=== PATIENT | male | born 1940 | race Caucasian/White ===

== ENCOUNTER 2016-07-10 07:29 | Emergency (ER) | payer BC ==
[2016-07-10 07:46] VITALS: BP 153/95
--- NOTE | 2016-07-10 08:22 | UC ---
Skin Complaint HPI - HPI Summary HPI Summary: Had tick on L upper thigh about 10 days ago. Removed it but the tick broke apart. Saw his PCP, who "picked out the head," and did not take lyme prophylaxis. Now for the last day or two pt has noticed redness, swelling, and pain at the site of the tick bite. Denies fever or ARRIETA. - History of Current Complaint Chief Complaint: UCSkin Time Seen by Provider: 07/10/16 08:04 Stated Complaint: RASH Hx Obtained From: Patient Onset/Duration: Gradual Onset, Lasting Days Skin Exposure Onset/Duration: Days Ago Timing: Constant Onset Severity: Mild Current Severity: Mild Location: Discrete Character: Pain, Redness, Raised Aggravating: Touch Alleviating: Nothing Associated Signs & Symptoms: Positive: Rash Related History: Insect Bite/Sting - Allergy/Home Medications Allergies/Adverse Reactions: Allergies Allergy/AdvReac Type Severity Reaction Status Date / Time Penicillins Allergy Intermediate Hives Verified 07/10/16 07:45 Review of Systems Constitutional: Negative Skin: Rash Eyes: Negative ENT: Negative Respiratory: Negative Cardiovascular: Negative Gastrointestinal: Negative Genitourinary: Negative Motor: Negative Neurovascular: Negative Musculoskeletal: Negative Neurological: Negative Psychological: Negative All Other Systems Reviewed And Are Negative: Yes PMH/Surg Hx/FS Hx/Imm Hx Endocrine History Of: Denies: Diabetes, Thyroid Disease Cardiovascular History Of: Reports: Cardiac Disorders - AAA 4.5cm, Hypertension Respiratory History Of: Denies: COPD, Asthma GI/ History Of: Denies: Ulcer - Surgical History Surgical History: Yes Surgery Procedure, Year, and Place: AAA. henia - Family History Known Family History: Positive: Hypertension - Social History Occupation: Retired Alcohol Use: None Substance Use Type: None Smoking Status (MU): Never Smoked Tobacco Physical Exam Triage Information Reviewed: Yes Appearance: Well-Appearing, No Pain Distress, Well-Nourished Vital Signs: Initial Vital Signs Temp 97.6 F 07/10/16 07:41 Pulse 68 07/10/16 07:41 Resp 20 07/10/16 07:41 BP 153/95 07/10/16 07:41 Pulse Ox 98 07/10/16 07:41 Vital Signs Reviewed: Yes Eye Exam: Normal Eyes: Positive: Conjunctiva Clear ENT: Positive: Pharynx normal. Negative: Nasal congestion, Nasal drainage, Tonsillar swelling, Tonsillar exudate Dental Exam: Normal Neck exam: Normal Neck: Positive: Supple, Nontender, No Lymphadenopathy Respiratory Exam: Normal Respiratory: Positive: Chest non-tender, Lungs clear, Normal breath sounds, No respiratory distress, No accessory muscle use Cardiovascular Exam: Normal Cardiovascular: Positive: RRR, No Murmur Musculoskeletal Exam: Normal Neurological Exam: Normal Neurological: Positive: Alert Psychological Exam: Normal Skin Exam: Other - Approx 4cm diameter round indurated, tender, and red area around tick bite on L upper thigh, surrounded by 16cm clinical services specialist pink ovoid skin. No streaking or drainage. Course/Dx - Diagnoses Provider Diagnoses: lyme infection. vs. cellulitis Discharge - Discharge Plan Condition: Stable Disposition: HOME Prescriptions: DOXYcycline CAP(*) [DOXYcycline 100MG CAP(*)] 100 mg PO BID #28 cap Patient Education Materials: Cellulitis (ED), Lyme Disease (ED) Referrals: Daylin Carty MD [Primary Care Provider] - Additional Instructions: As we discussed, the placement and timing of your red spot are suspicious for Lyme infection, while the swelling and pain are more suggestive of a more common skin infection such as staph. The doxycycline should help in either case. Please follow up with your primary care provider if you have any further symptoms or concerns.
== END 2016-07-10 08:25 | disposition home or self-care (01) ==
LOC: UCEAST 07:29
DX: R21 Rash and other nonspecific skin eruption (principal); Z88.0 Allergy status to penicillin; I10 Essential (primary) hypertension
CPT/HCPCS: 99212; G0463

== ENCOUNTER 2018-05-23 09:19 | Emergency (ER) | payer BC ==
--- NOTE | 2018-05-23 09:35 | ED ---
HPI Chest Pain - HPI Summary HPI Summary: This patient is a 77 year old F brought in by ambulance to ED with a chief complaint of feeling a pop in his chest a bit before 0600 and chest discomfort since then. The patient has a 4.5cm aneurysm and gets it checked twice a year (last checked in November 2017). The patient rates the pain 2/10 in severity currently and 4/10 during onset. Symptoms aggravated by nothing. Symptoms alleviated by nothing. Patient reports some back discomfort and weakness. Patient denies cough, dizziness/light-headedness, melena, and N/V. PMHx of AAA and HTN (takes Losartan BID, amlodipine, and hydrodiuril). - History of Current Complaint Chief Complaint: EDChestPainROMI Time Seen by Provider: 05/23/18 09:20 Hx Obtained From: Patient Onset/Duration: Started Hours Ago - since 0600, Still Present Timing: Constant Initial Severity: Moderate - 4/10 Current Severity: Mild - 2/10 Pain Intensity: 2 Pain Scale Used: 0-10 Numeric Chest Pain Radiates: Yes Chest Pain Radiates To:: Back - some back discomfort Aggravating Factor(s): Nothing Alleviating Factor(s): Nothing Associated Signs and Symptoms: Positive: Chest Pain, Weakness, Other: - felt a "pop" in his chest. Negative: Dizziness, Nausea, Cough, Vomiting - Allergy/Home Medications Allergies/Adverse Reactions: Allergies Allergy/AdvReac Type Severity Reaction Status Date / Time Penicillins Allergy Mild Hives Verified 05/23/18 10:01 soy AdvReac Mild Fatigue Verified 05/23/18 10:01 PMH/Surg Hx/FS Hx/Imm Hx Endocrine/Hematology History: Denies: Hx Diabetes, Hx Thyroid Disease Cardiovascular History: Reports: Hx Hypertension Respiratory History: Denies: Hx Asthma, Hx Chronic Obstructive Pulmonary Disease (COPD) GI History: Denies: Hx Ulcer History: Denies: Hx Renal Disease - Surgical History Surgery Procedure, Year, and Place: AAA. hernia Infectious Disease History: No Infectious Disease History: Denies: Hx Clostridium Difficile, Hx Hepatitis, Hx Human Immunodeficiency Virus (HIV), Hx of Known/Suspected MRSA, Hx Shingles, Hx Tuberculosis, Traveled Outside the [place] in Last 30 Days - Family History Known Family History: Positive: Hypertension - Social History Alcohol Use: None Substance Use Type: Reports: None Smoking Status (MU): Never Smoked Tobacco Review of Systems Negative: Fever, Chills Negative: Erythema Negative: Sore Throat Positive: Chest Pain - feeling a pop in his chest Negative: Shortness Of Breath, Cough Positive: Other - denies melena. Negative: Abdominal Pain, Vomiting, Nausea Negative: dysuria, hematuria Positive: Other - some back discomfort. Negative: Myalgia, Edema Negative: Rash Neurological: Other - denies dizziness/light-headedness Positive: Weakness All Other Systems Reviewed And Are Negative: Yes Physical Exam - Summary Physical Exam Summary: Constitutional: Well-developed, Well-nourished, Alert. (-) Distressed Skin: Warm, Dry HENT: Normocephalic; Atraumatic Eyes: Conjunctiva normal Neck: Musculoskeletal ROM normal neck. (-) JVD, (-) Stridor, (-) Tracheal deviation Cardio: Rhythm regular, bradycardic; Intact distal pulses; The pedal pulses are 2+ and symmetric. Radial pulses are 2+ and symmetric. (-) Murmur Pulmonary/Chest wall: Effort normal. (-) Respiratory distress, (-) Wheezes, (-) Rales Abd: Soft, (-) epigastric tenderness, (-) Distension, (-) Guarding, (-) Rebound Musculoskeletal: (-) Edema Lymph: (-) Cervical adenopathy Neuro: Alert, Oriented x3 Psych: Mood and affect Normal Triage Information Reviewed: Yes Vital Signs On Initial Exam: Initial Vitals Temp Pulse Resp BP Pulse Ox 97.2 F 52 16 75/57 100 05/23/18 09:22 05/23/18 09:22 05/23/18 09:22 05/23/18 09:22 05/23/18 09:22 Vital Signs Reviewed: Yes Diagnostics - Vital Signs Vital Signs Temp Pulse Resp BP Pulse Ox 05/23/18 09:22 97.2 F 52 16 75/57 100 - Laboratory Result Diagrams: 05/23/18 09:35 05/23/18 09:35 Lab Statement: Any lab studies that have been ordered have been reviewed, and results considered in the medical decision making process. - Radiology CXR Radiology Interpretation Completed By: Radiologist Summary of Radiographic Findings: DILATATION OF THE ASCENDING AORTA CORRESPONDING TO DISSECTION NOTED ON CT. Dr. Harper has reviewed this radiology report. 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 This is consistent with a type a dissection. Atherosclerosis is noted throughout the descending aorta and abdominal aorta. There is an enhancing right renal mass which has been increasing in size since 2012. Findings discussed with Dr. Harper at 10: [address] Harper has reviewed this radiology report. - EKG 0923 Cardiac Rate: Bradycardia - 52 BPM Summary of EKG Findings: 1st degree heart block Re-Evaluation - Re-Evaluation First Eval Re-Evaluation Time: 10:01 Comment: Discussed with patient results and plan for transfer to [facility]. Patient understands and agrees with this plan. Second Eval Re-Evaluation Time: 10:09 Change: Improved Comment: BP is back up to 100. Chest Pain Course/Dx - Course Assessment/Plan: This patient is a 77 year old F brought in by ambulance to ED with a chief complaint of feeling a pop in his chest a bit before 0600. This patient will be transferred to [facility] with dx of ascending thoracic aortic dissection. [employer] helicopter at 0933. Spoke with patient's at [phone] about the patient's potentially grave diagnosis. She is currently in [facility]. and I will discuss further with her after images are done. In the ED course, the patient was given fluids. EKG reveals sinus bradycardia at 52 BPM with a 1st degree heart block. Spoke with the transfer center at [facility] at 0941 who says they will call back with a physician. Spoke with Dr. Lynn at [facility] at 0945 who accepts the patient for transfer, pending images. Spoke with radiology at 1000 about the CTA results. 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 This is consistent with a type a dissection. Atherosclerosis is noted throughout the descending aorta and abdominal aorta. There is an enhancing right renal mass which has been increasing in size since 2012. CXR reveals DILATATION OF THE ASCENDING AORTA CORRESPONDING TO DISSECTION NOTED ON CT. Spoke with Dr. Lynn at [facility] at 1003 about the patient's radiology results and Dr. Lynn accepts transfer of the patient to the ED in [facility]. The patient will be transferred to [facility]. Patient understands and agrees with this plan. At the time of transfer, the patient was again hypotensive but then his BP went back up so we will send him on the helicopter with Levophed but will not start him on it prior to transfer. The flight crew will continue the blood transfusion and continue giving him fluids. Left a message on the 's voicemail at [phone] to update on patient's condition. Blood pressures been labile, but fluid responsive. The patient is a stable as he can be given our facilities capabilities. He requires emergent cardiothoracic surgery unavailable at our facility. The patient and his and daughter are aware of the high likelihood of poor prognosis. - Chest Pain Differential Diagnosis/HQI/PQRI: Other: - ascending thoracic aortic dissection - Diagnoses Provider Diagnoses: Thoracic ascending aortic aneurysm - Provider Notifications Time Discussed With Above Provider: 09:41 Instructed by Provider To: Other - Spoke with the transfer center at [facility] at 0941 who says they will call back with a physician. Spoke with Dr. Lynn at [facility] at 0945 who accepts the patient for transfer. Spoke with Dr. Lynn at [facility] at 1003 about the patient's radiology results. - Critical Care Time Critical Care Time: 30-74 min Discharge - Sign-Out/Discharge Documenting (check all that apply): Patient Departure - transfer Patient Received Moderate/Deep Sedation with Procedure: No - Discharge Plan Condition: Stable Disposition: TRANS HIGHER LVL OF CARE FAC Referrals: Daylin Carty MD [Primary Care Provider] - - Billing Disposition and Condition Condition: STABLE Disposition: Trans Higher Lvl of Care Fac - Attestation Statements Document Initiated by Scribe: Yes Documenting Scribe: Freddy Dillon Provider For Whom Aidan is Documenting (Include Credential): Ted Harper MD Scribe Attestation: Freddy Quintana, scribed for Ted Harper MD on 05/23/18 at 1027. Scribe Documentation Reviewed: Yes Provider Attestation: The documentation as recorded by the Freddy degroot accurately reflects the service I personally performed and the decisions made by , Ted Harper MD Status of Scribe Document: Viewed
[2018-05-23] MEDS: NS 0.9% 1000 ML** 2,000 ML IV ONE (09:39)
[2018-05-23] MEDS ORDERED: Iodixanol* (CONTRAST) 320 MG/ML 100 ML SDV IV ONE (09:40)
[2018-05-23 09:44] LABS: ABS Basophils 0 10^3/ul (0-0.2); ABS Eosinophils 0.1 10^3/ul (0-0.6); ABS Lymphocytes 0.7 10^3/ul (1.0-4.8); ABS Monocytes 0.4 10^3/ul (0-0.8); ABS Neutrophils 7.3 10^3/ul (1.5-7.7); ABS Nucleated RBC 0 10^3/ul; Eosinophil % 0.7 %; Hematocrit 40 % (36-46); Hemoglobin 13.8 g/dL (14.0-18.0); Lymphocyte % 8.1 %; Mean Corpuscular HGB Conc 34 g/dL (31-36); Mean Corpuscular Hemoglobin 31 pg (27-31); Mean Corpuscular Volume 91 fL (80-94); Mean Platelet Volume 8.1 fL (7.4-10.4); Nucleated Red Blood Cells % 0; Platelet Count 151 10^3/uL (150-450); Red Blood Count 4.42 10^6 /uL (4.18-5.48); Red Cell Distribution Width 14 % (10.5-15); White Blood Count 8.6 10^3/uL (3.5-10.8)
[2018-05-23 10:07] LABS: Albumin 3.9 g/dL (3.2-5.2); Albumin/Globulin Ratio 1.6 (1-3); BUN/Creatinine Ratio 25.9 (8-20); Calcium 9.2 mg/dL (8.6-10.3); EGFR African American 73.9 (>60); EGFR Non-African American 61.1 (>60); Globulin 2.5 g/dL (2-4); Potassium 3.3 mmol/L (3.5-5.0); Total Bilirubin 0.6 mg/dL (0.2-1.0); Total Protein 6.4 g/dL (6.4-8.9)
[2018-05-23] MEDS ORDERED: Norepinephrine 16MCG/ML IVPRE* 4,000 MCG/250 ML BAG IV ONE (10:11)
[2018-05-23] MEDS ORDERED: Norepinephrine 16MCG/ML IVPRE* 0 MCG/0 ML BAG IV ONE (10:12)
[2018-05-23 10:33] VITALS: BP 101/55
== END 2018-05-23 10:32 | disposition short-term general hospital (02) ==
LOC: ED 09:19
DX: I71.2 Thoracic aortic aneurysm, without rupture (principal); R07.9 Chest pain, unspecified; Z88.0 Allergy status to penicillin; R53.1 Weakness; I10 Essential (primary) hypertension; Z86.79 Personal history of other diseases of the circulatory system
CPT/HCPCS: 36415; 71045; 71275; 74174; 80053; 83605; 84484; 85025; 86850; 86900; 86901; 86922; 93005; 96361; 96374; 96375; 99285; Q9967